=== PATIENT | female | born 1970 | race Caucasian/White ===

== ENCOUNTER → 2016-12-25 | Outpatient (CLI) | payer OTHER | LOC: MC.RAD 11:40 | DX: Z12.31 Encounter for screening mammogram for malignant neoplasm of breast (principal) ==

== ENCOUNTER → 2017-07-18 | Outpatient (REF) | LOC: WSOH 17:14 | DX: Z02.89 Encounter for other administrative examinations (principal) ==

== ENCOUNTER → 2019-07-09 | Outpatient (CLI) | payer OTHER | LOC: MC.RAD 13:30 | DX: Z12.31 Encounter for screening mammogram for malignant neoplasm of breast (principal); Z98.82 Breast implant status ==

== ENCOUNTER → 2022-01-04 | Outpatient (CLI) | payer OTHER | LOC: COL.LAB 15:09 | DX: D64.9 Anemia, unspecified (principal) ==

== ENCOUNTER → 2022-02-09 | Day surgery (SDC) | payer OTHER ==
[~2022-02-09] VITALS: Ht 167.6 cm; Wt 60.7 kg
[~2022-02-09] MED LIST: MULTI VITAMINS1 TAB PO; PROVENTIL0.09 MG/A1 IH; PULMICORT90 MCG/Act IH; SINGULAIR 110 MG/TAB PO
[2022-02-09 09:16] VITALS: BP 117/75; PULSE 79; TEMP 98
[2022-02-09 10:40] VITALS: BP 113/67; PULSE 73; TEMP 97.5
[2022-02-09 10:55] VITALS: BP 99/68; PULSE 55; TEMP 97.5
[2022-02-09 11:10] VITALS: BP 112/61; PULSE 65
--- NOTE | 2022-02-09 13:36 | NUR ---
1040: Patient arrived back into [facility] from endo procedure. Report received from endo RN. Patient awake and alert. Denies pain or nausea. Patient requesting chocolate pudding and water. 1050: Dr. Pierce in to see patient. 1055: Patient doing well. Denies pain or nausea. Tolerated food and drink well 1115: Went through discharge instructions with patient. Questions answered. Patient denies pain or nausea. Patient to get dressed independently in room. IV removed without complications. 1130: patient notified RN that ride is here. Patient escorted to patient entrance via wheelchair, got into personal vehicle and left in the care of her daughter.
[2022-02-09 13:52] VITALS: BP 113/67; PULSE 73; TEMP 97.5
== END ==
LOC: SDCO 08:53
DX: Z12.11 Encounter for screening for malignant neoplasm of colon (principal); D12.5 Benign neoplasm of sigmoid colon; Z79.899 Other long term (current) drug therapy
CPT/HCPCS: J2704; J7120

== ENCOUNTER → 2022-02-21 | Outpatient (CLI) | payer OTHER | LOC: MC.RAD 14:36 | DX: Z12.31 Encounter for screening mammogram for malignant neoplasm of breast (principal) ==

== ENCOUNTER → 2022-03-30 | Outpatient (CLI) | payer OTHER ==
[2022-03-30 16:55] LABS: MEAN CELL VOLUME 98 fl (80.0-100.0); MEAN CORPUSCULAR HEMOGLOBIN 33 pg (27-31); MEAN CORPUSCULAR HGB CONC 34 g/dl (33.0-37.0); MEAN PLATELET VOLUME 11.3 fl (7.4-10.4); PLATELET COUNT 236 K/mm3 (130-400); RED BLOOD COUNT 3.59 M/mm3 (4.10-5.30); REDCELL DISTRIBUTION WIDTH-CV 13.4 % (11.5-14.5)
[2022-03-30 17:14] LABS: CALCIUM 9.2 mg/dL (8.4-10.2); CREATININE, serum 0.86 mg/dL (0.57-1.11); HEMATOCRIT 35.3 % (37.0-47.0); POTASSIUM 4.2 mmol/L (3.5-4.5)
[2022-03-30 17:41] LABS: BAND 1 % (0-10); EOSINOPHIL 1 % (0-4); HYPOCHROMIA 1+; LYMPHOCYTE 47 % (20.0-51.0); NEUTROPHILS 46 % (42.0-75.2); PLATELET ESTIMATE NORMAL (NORMAL)
== END ==
LOC: COL.LAB 16:20
PROVIDERS: Physician Assistant
DX: N28.9 Disorder of kidney and ureter, unspecified (principal); D64.9 Anemia, unspecified; R73.01 Impaired fasting glucose

== ENCOUNTER → 2022-08-29 | Outpatient (CLI) | payer OTHER ==
[2022-08-29 10:50] LABS: COLLECTION METHOD CLEAN CATCH
[2022-08-29 10:54] LABS: HEMOGLOBIN 12.1 g/dl (12.5-16.0); MEAN CELL VOLUME 98 fl (80.0-100.0); MEAN CORPUSCULAR HEMOGLOBIN 34 pg (27-31); MEAN CORPUSCULAR HGB CONC 35 g/dl (33.0-37.0); MEAN PLATELET VOLUME 11.2 fl (7.4-10.4); PLATELET COUNT 281 K/mm3 (130-400); REDCELL DISTRIBUTION WIDTH-CV 11.8 % (11.5-14.5)
[2022-08-29 10:58] LABS: HEMATOCRIT 35.1 % (37.0-47.0)
[2022-08-29 10:59] LABS: SQUAMOUS EPITHELIAL None Seen /hpf (0-10); URINE BACTERIA None Seen /hpf (NONE SEEN); URINE RBC None Seen /hpf (0-2); URINE WBC 0-2 /hpf (0-2)
[2022-08-29 11:00] LABS: PH 5.5 (5.0-8.5); URINE APPEARANCE Clear (CLEAR/HAZY); URINE BLOOD Negative (NEGATIVE); URINE COLOR Yellow (YELLOW); URINE GLUCOSE Negative (NEGATIVE); URINE KETONE Negative (NEGATIVE); URINE NITRATE Negative (NEGATIVE); URINE PROTEIN(semi-quant) Negative (NEGATIVE); URINE UROBILINOGEN 0.2 E.U/dL (0.2-1.0)
[2022-08-29 11:08] LABS: ALBUMIN 4.3 gm/dL (3.5-5.0); BILIRUBIN,TOTAL 0.4 mg/dL (0.2-1.2); CALCIUM 9.9 mg/dL (8.4-10.2); CREATININE, serum 0.81 mg/dL (0.57-1.11); POTASSIUM 3.5 mmol/L (3.5-4.5); TOTAL PROTEIN 7.5 gm/dL (6.2-8.1)
== END ==
LOC: COL.LAB 10:06
PROVIDERS: Obstetrics & Gynecology
DX: Z01.812 Encounter for preprocedural laboratory examination (principal)

== ENCOUNTER → 2022-08-29 | Outpatient (CLI) | payer OTHER | LOC: COL.RAD 10:09 | DX: Z01.818 Encounter for other preprocedural examination (principal) ==